=== PATIENT | male | born 1995 | race Caucasian/White ===

== ENCOUNTER 2018-07-23 18:04 | Emergency (ER) | payer SELFPAY, OTHER ==
[2018-07-23] MEDS: predniSONE 20 MG TAB PO (19:35)
[2018-07-23] MEDS: ALBUTEROL 0.083% (NEB) 2.5 MG/3 ML AMP NEB (19:38)
[2018-07-23] MEDS: IPRATROPIUM (NEB) 0.5 MG/2.5 ML AMP NEB (19:39)
[2018-07-23] MEDS: ALBUTEROL 0.083% (NEB) 2.5 MG/3 ML AMP HHN (20:50)
[2018-07-23] MEDS: IPRATROPIUM (NEB) 0.5 MG/2.5 ML AMP HHN (20:50)
== END 2018-07-23 21:40 | disposition home or self-care (01) ==
LOC: FTE 18:04
DX: J45.901 Unspecified asthma with (acute) exacerbation (principal)
CPT/HCPCS: 71046; 94640; 94664; 99284-25

== ENCOUNTER 2018-10-16 14:53 | Emergency (ER) | payer MEDICAID ==
[2018-10-16] MEDS: METHOCARBAMOL 750 MG TAB PO (16:24)
[2018-10-16] MEDS: KETOROLAC 60 MG INJ IM (16:25)
== END 2018-10-16 16:49 | disposition home or self-care (01) ==
LOC: FTE 14:53
DX: M62.838 Other muscle spasm (principal); J45.909 Unspecified asthma, uncomplicated; F17.210 Nicotine dependence, cigarettes, uncomplicated
CPT/HCPCS: 96372; 99284-25